=== PATIENT | male | born 1975 ===

== ENCOUNTER 2017-06-09 17:29 | Emergency (ER) | payer SELFPAY ==
[2017-06-09 17:29] VITALS: BMI 25.8
[2017-06-09 17:41] VITALS: BP 107/74; PULSE 111; RESP 16; TEMP 98.1; O2SAT 98
[2017-06-09] MEDS ORDERED: Sodium Chloride 0.9% 1,000 ML IV STA (18:05)
--- NOTE | 2017-06-09 18:13 | ED PDOC ---
HPI: General Adult Time Seen by Provider: 06/09/17 17:43 Chief Complaint (Nursing): Abdominal Pain History Per: Patient Additional Complaint(s): Pt. states for the past 3 hours he's had LLQ abdominal pain associated with non- bloody vomiting and diarrhea. Pt. reports a hx of UC. 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 Denies fever, bloody diarrhea, hematemesis, melena. Past Medical History Reviewed: Historical Data, Nursing Documentation, Vital Signs Vital Signs: Last Vital Signs Temp 98.1 F 06/09/17 17:40 Pulse 111 H 06/09/17 17:40 Resp 16 06/09/17 17:40 BP 107/74 06/09/17 17:40 Pulse Ox 98 06/09/17 19:10 - Medical History PMH: Anxiety, Post Traumatic Stress Disorder (911 survivor) Denies: Diabetes, Hepatitis, HIV, HTN, Seizures, Sexually Transmitted Disease Other PMH: UC - Family History Family History: States: No Known Family Hx - Immunization History Hx Tetanus Toxoid Vaccination: No Hx Influenza Vaccination: No Hx Pneumococcal Vaccination: No - Home Medications Home Medications: Ambulatory Orders Medication Instructions Recorded Xanax 1 mg PO PRN PRN 09/30/16 Ondansetron [Zofran Odt] 4 mg PO TID PRN #9 odt 10/24/16 Dicyclomine [Bentyl] 20 mg PO Q8 PRN #15 tab 06/09/17 Ondansetron ODT [Zofran ODT] 4 mg PO TID #20 odt 06/09/17 - Allergies Allergies/Adverse Reactions: Allergies Allergy/AdvReac Type Severity Reaction Status Date / Time No Known Allergies Allergy Verified 10/22/16 02:13 Review of Systems ROS Statement: Except As Marked, All Systems Reviewed And Found Negative Gastrointestinal: Positive for: Nausea, Vomiting, Abdominal Pain, Diarrhea Physical Exam - Reviewed Nursing Documentation Reviewed: Yes Vital Signs Reviewed: Yes - Physical Exam Appears: Positive for: Well, Non-toxic, No Acute Distress Head Exam: Positive for: ATRAUMATIC, NORMAL INSPECTION, NORMOCEPHALIC Skin: Positive for: Normal Color, Warm. Negative for: Rash Eye Exam: Positive for: EOMI, Normal appearance, PERRL ENT: Positive for: Normal ENT Inspection Neck: Positive for: Normal, Painless ROM Cardiovascular/Chest: Positive for: Regular Rate, Rhythm Respiratory: Positive for: CNT, Normal Breath Sounds Gastrointestinal/Abdominal: Positive for: Normal Exam, Bowel Sounds, Soft. Negative for: Tenderness (to deep palpation) Back: Positive for: Normal Inspection. Negative for: L CVA Tenderness, R CVA Tenderness Extremity: Positive for: Normal ROM Neurologic/Psych: Positive for: Alert, Oriented, Other (slurred speech; AOB). Negative for: Aphasia, Facial Droop - Laboratory Results Result Diagrams: 06/09/17 18:32 06/09/17 18:32 - ECG O2 Sat by Pulse Oximetry: 98 ED OBSERVATION Discharge: Yes Date of observation admission: 06/09/17 Time of observation admission: 18:14 - Observation admission statement Patient is being placed in observation because:: Abdominal pain, ETOH - Progress Note Progress Note: 06/09/17 18:15 Labs ordered. Maalox 30ml PO, zofran 4mg PO, bentyl 20mg PO ordered. 06/09/17 18:41 Pt. refusing PO meds. Requesting Morphine. Pt. and fiance informed that he cannot be given any narcotic meds. Pt. then requested 1 percocet. Risks of giving narcotics while intoxicated were discussed once again with patient. Pt. then admits to taking 2 shots along with the 2 glasses of wine. 06/09/17 19:09 ETOH: 228 06/09/17 19:24 Abd x-ray: no obstruction. Pt. in no distress. Still requesting narcotics. Pt. informed that he will not get any narcotic medications. Pt. requesting to be dc'd. Pt. will be discharged under his fiance's [facility] care. 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 Prescriptions: Dicyclomine [Bentyl] 20 mg PO Q8 PRN #15 tab PRN Reason: abdominal pain Ondansetron ODT [Zofran ODT] 4 mg PO TID #20 odt Instructions: Ulcerative Colitis (ED) Forms: [employer] (Urdu)
[2017-06-09] MEDS: Alum-Mag Hydrox-Simethicone Susp (30 mL) PO ONE ×2 (18:19→19:29)
[2017-06-09 18:37] LABS: BASO % 0.7 % (0.0-2.0); EOS # 0.2 K/uL (0.0-0.7); EOS % 3.3 % (0.0-4.0); HEMOGLOBIN 14.1 g/dL (12.0-18.0); LYMPH % 28.5 % (20.0-40.0); MEAN CELL VOLUME 87.6 fl (80.0-94.0); MEAN CORPUSCULAR HEMOGLOBIN 29.7 pg (27.0-31.0); MEAN CORPUSCULAR HGB CONC 33.9 g/dL (33.0-37.0); MEAN PLATELET VOLUME 7.3 fl (7.2-11.7); MONO # 0.4 K/uL (0.0-0.8); MONO % 6.2 % (0.0-10.0); NEUT # 4.2 K/uL (1.8-7.0); NEUT % 61.3 % (50.0-75.0); RBC 4.74 Mil/uL (4.40-5.90); RED CELL DISTRIBUTION WIDTH 14.4 % (11.5-14.5); WHITE BLOOD COUNT 6.9 K/uL (4.8-10.8)
[2017-06-09 18:50] LABS: ALB/GLOB RATIO 1.3 (1.0-2.1); ALBUMIN 4.8 g/dL (3.5-5.0); ALT/SGPT 44 U/L (21-72); AST/SGOT 43 U/L (17-59); BLOOD UREA NITROGEN 12 mg/dl (9-20); CALCIUM 9.4 mg/dL (8.4-10.2); GFR AFRICAN-AMERICAN > 60; GFR NON-AFRICAN AMERICAN > 60; LIPASE 199 U/L (23-300)
--- NOTE | 2017-06-10 08:52 | RAD ---
HISTORY: abdominal pain COMPARISON: No prior. FINDINGS: BOWEL: Normal. No obstruction. No free air. BONES: Normal. OTHER FINDINGS: None. IMPRESSION: No active disease.
== END 2017-06-09 19:30 | disposition home or self-care (01) ==
LOC: H.ER 17:29
DX: K51.911 Ulcerative colitis, unspecified with rectal bleeding (principal); F10.10 Alcohol abuse, uncomplicated
CPT/HCPCS: 74020; 80053; 83690; 85025; 96360; 99283; G0480; J7040

== ENCOUNTER 2018-06-20 10:51 | Emergency (ER) | payer OTHER ==
[2018-06-20 10:52] VITALS: BMI 25.8
--- NOTE | 2018-06-20 11:38 | ED PDOC ---
HPI: Back Time Seen by Provider: 06/20/18 11:08 Chief Complaint (Nursing): Back Pain Chief Complaint (Provider): Back Pain History Per: Patient History/Exam Limitations: no limitations Onset/Duration Of Symptoms: Days (3x) Quality Of Discomfort: "Pain" Additional Complaint(s): 42 year old male presents to the ED for an evaluation of back pain onset for 3 days after lifting heavy object. Patient states the pain radiates to both of his buttocks. Reports he has visited the ED for the same complaint and denies any improvement with Tramadol. He denies any weakness, paresthesia or urinary symptoms. PMD: Non [facility] Provider Past Medical History Reviewed: Historical Data, Nursing Documentation, Vital Signs Vital Signs: Last Vital Signs Temp 98.3 F 06/20/18 11:10 Pulse 120 H 06/20/18 11:10 Resp 20 06/20/18 11:10 BP 97/65 L 06/20/18 11:10 Pulse Ox 95 06/20/18 11:10 - Medical History PMH: Anxiety, Post Traumatic Stress Disorder (07/17 survivor) Denies: Diabetes, Hepatitis, HIV, HTN, Seizures, Sexually Transmitted Disease - Family History Family History: States: Unknown Family Hx - Social History Current smoker - smoking cessation education provided: No Alcohol: Social Drugs: Denies - Immunization History Hx Tetanus Toxoid Vaccination: No Hx Influenza Vaccination: No Hx Pneumococcal Vaccination: No - Home Medications Home Medications: Ambulatory Orders Medication Instructions Recorded Xanax 1 mg PO PRN PRN 09/30/16 Ondansetron [Zofran Odt] 4 mg PO TID PRN #9 odt 10/24/16 Dicyclomine [Bentyl] 20 mg PO Q8 PRN #15 tab 06/09/17 Ondansetron ODT [Zofran ODT] 4 mg PO TID #20 odt 06/09/17 Cyclobenzaprine [Cyclobenzaprine 10 mg PO TID #10 tab 06/20/18 HCl] Naproxen [Naprosyn] 500 mg PO Q12H #20 tab 06/20/18 - Allergies Allergies/Adverse Reactions: Allergies Allergy/AdvReac Type Severity Reaction Status Date / Time No Known Allergies Allergy Verified 10/22/16 02:13 Review of Systems ROS Statement: Except As Marked, All Systems Reviewed And Found Negative Genitourinary Male: Negative for: Dysuria, Frequency, Incontinence Musculoskeletal: Positive for: Back Pain Neurological: Negative for: Weakness, Numbness, Other (paresthesia) Physical Exam - Reviewed Nursing Documentation Reviewed: Yes Vital Signs Reviewed: Yes - Physical Exam Appears: Positive for: Non-toxic, No Acute Distress Head Exam: Positive for: ATRAUMATIC, NORMAL INSPECTION, NORMOCEPHALIC Skin: Positive for: Normal Color, Warm, Dry Back: Positive for: Muscle Spasm (paralumbar spasm and tenderness). Negative for: Other (focal or motor deformity, midline tenderness ) Neurologic/Psych: Positive for: Alert, Oriented (x3). Negative for: Motor/ Sensory Deficits - ECG O2 Sat by Pulse Oximetry: 95 (RA) Pulse Ox Interpretation: Normal Medical Decision Making Medical Decision Making: Time: 1118 Initial Impression: back pain Initial Plan: --Toradol 30mg --Valium 5mg --Reevaluation Scribe Attestation: Documented by Marcia Hui, acting as a scribe for Teddy Lau MD Provider Scribe Attestation: All medical record entries made by the Scribe were at my direction and personally dictated by me. I have reviewed the chart and agree that the record accurately reflects my personal performance of the history, physical exam, medical decision making, and the department course for this patient. I have also personally directed, reviewed, and agree with the discharge instructions and disposition. Disposition - Clinical Impression Clinical Impression: Back strain - Patient ED Disposition Is Patient to be Admitted: No - Disposition Referrals: Luis Carlos Whitehead III, MD [Staff Provider] - Disposition: Routine/Home Disposition Time: 13:01 Condition: FAIR Prescriptions: Cyclobenzaprine [Cyclobenzaprine HCl] 10 mg PO TID #10 tab Naproxen [Naprosyn] 500 mg PO Q12H #20 tab Instructions: Low Back Pain (DC) Forms: [employer] (Egyptian)
[2018-06-20] MEDS ORDERED: Acetaminophen 160 mg/5 ml UD ONE (12:15)
[2018-06-20 13:48] VITALS: BP 115/67; PULSE 101; RESP 18; TEMP 99; O2SAT 99
== END 2018-06-20 13:48 | disposition home or self-care (01) ==
LOC: H.ER 10:51
DX: S39.012A Strain of muscle, fascia and tendon of lower back, initial encounter (principal); X50.9XXA Other and unspecified overexertion or strenuous movements or postures, initial encounter; Y92.89 Other specified places as the place of occurrence of the external cause; F43.10 Post-traumatic stress disorder, unspecified
CPT/HCPCS: 96372; 99284; J1885

== ENCOUNTER 2018-06-22 14:17 | Emergency (ER) | payer OTHER ==
[2018-06-22 14:17] VITALS: BMI 25.8
[2018-06-22] MEDS ORDERED: diaZEpam 10 mg/2 ml Inj IVP ONE (15:12)
--- NOTE | 2018-06-22 15:15 | ED PDOC ---
HPI: Back Time Seen by Provider: 06/22/18 14:36 Chief Complaint (Nursing): Back Pain Chief Complaint (Provider): Back History Per: Patient Additional Complaint(s): 42 year old male presents to the ED for an evaluation of worsening back pain onset for 5 days after lifting heavy object. Patient states the pain radiates to both of his buttocks, and now up his back as well. Reports he has visited the ED for the same complaint 2 days ago and denies any improvement with Tramadol. He denies any weakness, paresthesia or urinary symptoms. PMD: Non [facility] Provider Past Medical History Reviewed: Nursing Documentation, Vital Signs Vital Signs: Last Vital Signs Temp 98.7 F 06/22/18 14:27 Pulse 106 H 06/22/18 14:27 Resp 20 06/22/18 14:27 BP 113/58 L 06/22/18 14:40 Pulse Ox 98 06/22/18 14:27 - Medical History PMH: Anxiety, Post Traumatic Stress Disorder (07/17 survivor) Denies: Diabetes, Hepatitis, HIV, HTN, Seizures, Sexually Transmitted Disease - Surgical History Surgical History: No Surg Hx - Family History Family History: States: Unknown Family Hx - Living Arrangements Living Arrangements: With Family - Social History Current smoker - smoking cessation education provided: No Alcohol: None Drugs: Denies - Immunization History Hx Tetanus Toxoid Vaccination: No Hx Influenza Vaccination: No Hx Pneumococcal Vaccination: No - Home Medications Home Medications: Ambulatory Orders Medication Instructions Recorded Xanax 1 mg PO PRN PRN 09/30/16 Ondansetron [Zofran Odt] 4 mg PO TID PRN #9 odt 10/24/16 Dicyclomine [Bentyl] 20 mg PO Q8 PRN #15 tab 06/09/17 Ondansetron ODT [Zofran ODT] 4 mg PO TID #20 odt 06/09/17 Cyclobenzaprine [Cyclobenzaprine 10 mg PO TID #10 tab 06/20/18 HCl] Naproxen [Naprosyn] 500 mg PO Q12H #20 tab 06/20/18 oxyCODONE/Acetaminophen [Percocet 1 ea PO Q6 PRN #5 tab 06/22/18 5/325 mg Tab] - Allergies Allergies/Adverse Reactions: Allergies Allergy/AdvReac Type Severity Reaction Status Date / Time No Known Allergies Allergy Verified 10/22/16 02:13 Review of Systems ROS Statement: Except As Marked, All Systems Reviewed And Found Negative Musculoskeletal: Positive for: Back Pain Physical Exam - Reviewed Nursing Documentation Reviewed: Yes Vital Signs Reviewed: Yes - Physical Exam Appears: Positive for: Well, Non-toxic, No Acute Distress Head Exam: Positive for: ATRAUMATIC, NORMAL INSPECTION, NORMOCEPHALIC Skin: Positive for: Normal Color, Warm, DRY Eye Exam: Positive for: EOMI, Normal appearance, PERRL ENT: Positive for: Normal ENT Inspection Neck: Positive for: Normal, Painless ROM Cardiovascular/Chest: Positive for: Regular Rate, Rhythm Respiratory: Positive for: CNT, Normal Breath Sounds Gastrointestinal/Abdominal: Positive for: Normal Exam, Soft Back: Positive for: Vertebral Tenderness, Muscle Spasm, Other (thoracic and LS paraspinal tenderness). Negative for: L CVA Tenderness, R CVA Tenderness Extremity: Positive for: Normal ROM Neurologic/Psych: Positive for: Alert, Oriented - ECG O2 Sat by Pulse Oximetry: 98 Medical Decision Making Medical Decision Making: Dip (-) blood, leuks or nites Medicated with Toradol and Valium, only mild relief obtained Pt then medicated with Percocet PO with good relief CT scans obtained, results discussed with Pt who demonstrated full understanding Stable for discharge home at this [place] Disposition - Clinical Impression Clinical Impression: Back pain - Patient ED Disposition Is Patient to be Admitted: No - Disposition Disposition: Routine/Home Disposition Time: 18:53 Condition: STABLE Prescriptions: oxyCODONE/Acetaminophen [Percocet 5/325 mg Tab] 1 ea PO Q6 PRN #5 tab PRN Reason: Pain, Severe (8-10) Instructions: Upper Back Pain Forms: [employer] (Kinyarwanda)
[2018-06-22] MEDS ORDERED: Oxycodone/Acetaminophen 5/325 mg Tab PO STA (17:01)
[2018-06-22] MEDS ORDERED: Oxycodone/Acetaminophen 5/325 mg Tab ONE (17:05)
--- NOTE | 2018-06-22 17:58 | CT ---
Date of service: 06/22/2018 PROCEDURE: CT Lumbar Spine without contrast HISTORY: Severe back Pain. No history of recent/ related trauma provided COMPARISON: None available. TECHNIQUE: Axial computed tomography images were obtained of the lumbar spine without the use of intravenous contrast. Coronal and sagittal reformatted images were created and reviewed. Radiation dose: Total exam DLP = 960.39 mGy-cm. This CT exam was performed using one or more of the following dose reduction techniques: Automated exposure control, adjustment of the mA and/or kV according to patient size, and/or use of iterative reconstruction technique. FINDINGS: VERTEBRAE: Unremarkable. No fracture. Normal alignment. DISCS/SPINAL CANAL/NEURAL FORAMINA: L1-2: Unremarkable. L2-3: Unremarkable. L3-4: Unremarkable. L4-5: Unremarkable. L5-S1: Unremarkable. PARASPINAL SOFT TISSUES: Unremarkable. OTHER FINDINGS: None. IMPRESSION: Unremarkable CT of Lumbar Spine.
--- NOTE | 2018-06-22 18:01 | CT ---
Date of service: 06/22/2018 PROCEDURE: CT Thoracic Spine without contrast HISTORY: severe pain COMPARISON: None available. TECHNIQUE: Axial computed tomography images were obtained of the thoracic spine without intravenous contrast. Coronal and sagittal reformatted images were created and reviewed. Radiation dose: Total exam DLP = 802.09 mGy-cm. This CT exam was performed using one or more of the following dose reduction techniques: Automated exposure control, adjustment of the mA and/or kV according to patient size, and/or use of iterative reconstruction technique. FINDINGS: VERTEBRAE: Unremarkable. No fracture. Normal alignment. DISCS/SPINAL CANAL/NEURAL FORAMINA: Within the limits of the CT technique, no disc herniation seen. No central canal or neural foraminal stenosis.. PARASPINAL SOFT TISSUES: Unremarkable. OTHER FINDINGS: Unremarkable. IMPRESSION: Unremarkable CT of the thoracic spine.
[2018-06-22 19:09] VITALS: BP 98/62; PULSE 85; RESP 14; TEMP 98; O2SAT 96
== END 2018-06-22 19:08 | disposition home or self-care (01) ==
LOC: H.ER 14:17
DX: M54.9 Dorsalgia, unspecified (principal); F43.10 Post-traumatic stress disorder, unspecified
CPT/HCPCS: 72128; 72131; 96372; 99283; J1885